=== PATIENT | female | born 2000 | race Two or more races ===

== ENCOUNTER 2021-05-16 08:52 | Emergency (ER) | payer SELFPAY ==
[~2021-05-16] VITALS: Ht 177.8 cm; Wt 68.2 kg
[2021-05-16 08:52] VITALS: BP 120/74
[2021-05-16] MEDS ORDERED: ISOT20CA PO (08:59)
[2021-05-16] MEDS ORDERED: PARA1IUD IU (08:59)
== END 2021-05-16 11:47 | disposition left against medical advice (07) ==
LOC: M ED 08:52
DX: Z53.29 Procedure and treatment not carried out because of patient's decision for other reasons (principal)

== ENCOUNTER → 2021-07-21 | Outpatient (CLI) | payer OTHER ==
[~2021-07-21] MED LIST: ISOT20CA PO; PARA1IUD IU
== END ==
LOC: M RAD 08:02
PROVIDERS: ATTEND Physician Assistant
DX: M25.572 Pain in left ankle and joints of left foot (principal)
CPT/HCPCS: 78315; A9503